=== PATIENT | male | born 1930 | race Caucasian/White ===

== ENCOUNTER 2018-07-13 09:21 | Emergency (ER) | payer OTHER ==
[~2018-07-13] VITALS: Ht 170.2 cm; Wt 72.6 kg
[~2018-07-13 09:21] MED LIST: ACCUPRIL5 MG PO; ADVAIR HFA115 MCG/21 INH; ARICEPT 5 MG TAB5 MG PO; BIOTIN1 M1 PO; DOXYCYCLINE 10100 MG PO; GINKGO BILOBA30 MG PO; GLYCOTROL CAPS1 EACH PO; MICROZIDE12.5 MG PO; NAMENDA 10 MG T10 MG PO; NORVASC2.5 MG PO; OMEGA-31000 M1 PO; PROBIOTIC1 EAC1 PO; VITAMIN D3400 UNIT PO; XARELTO1 EACH PO
[2018-07-13 09:46] LABS: ABSOLUTE NEUTROPHILS 11.9 thou/uL (1.4-8.2); BASOPHILS 0.1 % (0.0-2.0); HEMATOCRIT 51.5 % (42.0-52.0); HEMOGLOBIN 17.6 gm/dL (14.0-18.0); LYMPHOCYTES 2.1 % (24.0-44.0); MCH 33.8 pg (26.0-34.0); MCHC 34.2 g/dL (28.0-37.0); MCV 98.8 fL (80.0-100.0); MONOCYTES 4.9 % (1.0-8.0); PLATELET COUNT 189 thou/uL (150-400); POLYS 92.9 % (36.0-66.0); RBC 5.21 mil/uL (4.50-6.00); RDW 13.5 % (10.5-14.5); WBC 12.8 thou/uL (4.0-11.0)
[2018-07-13 09:57] LABS: CALCIUM 9.1 mg/dL (8.5-10.1); CREATININE 1.3 mg/dL (0.7-1.3); POTASSIUM 4.1 mmol/L (3.5-5.1)
[2018-07-13 09:58] LABS: APTT 29.2 Seconds (24.5-32.8); INR 1.1; PROTIME 11.2 Seconds (9.3-11.4)
[2018-07-13 10:03] LABS: ALBUMIN 3.7 g/dL (3.4-5.0); TOTAL PROTEIN 7.4 g/dL (6.4-8.2)
[2018-07-13 10:14] LABS: URINE BILIRUBIN NEGATIVE (Negative); URINE BLOOD 3+ (Negative); URINE CLARITY CLEAR; URINE COLOR YELLOW; URINE GLUCOSE-RANDOM* NEGATIVE (Negative); URINE KETONES TRACE (Negative); URINE LEUKOCYTES NEGATIVE (Negative); URINE NITRITE NEGATIVE (Negative); URINE PROTEIN (DIPSTICK) TRACE (Negative); URINE SPECIFIC GRAVITY >= 1.030 (1.005-1.035); URINE UROBILINOGEN 0.2 E.U./dl (0.2-1.0)
[2018-07-13 10:23] LABS: AMP/METHAMP Negative (Negative); BARBITURATES Negative (Negative); BENZODIAZEPINES Negative (Negative); COCAINE Negative (Negative); METHADONE Negative (Negative); OPIATES Negative (Negative); PCP Negative (Negative)
[2018-07-13 10:26] LABS: CASTS None Seen /LPF (None Seen); MUCUS 4-6 Moderate strn/LPF (None Seen); SQUAMOUS 0-3 Few /LPF (0-3)
[2018-07-13 10:27] LABS: AMORPHOUS URATES Few /LPF (None Seen); BACTERIA 1-9 Few /HPF (None Seen); URINE RBC 0-2 Rare /HPF (0-2); URINE WBC 0-5 Rare /HPF (0-5)
[2018-07-13] MEDS ORDERED: PAROXETINE HCL10 MG PO (10:52)
[2018-07-13] MEDS ORDERED: VITAMIN D3400 UNIT PO (10:53)
[2018-07-13] MEDS ORDERED: TYLENOL325 MG PO (10:54)
[2018-07-13 12:55] VITALS: BP 142/67
== END 2018-07-13 12:56 | disposition home or self-care (01) ==
LOC: ER 09:21
PROVIDERS: Emergency Medicine
DX: S20.212A Contusion of left front wall of thorax, initial encounter (principal); F03.90 Unspecified dementia, unspecified severity, without behavioral disturbance, psychotic disturbance, mood disturbance, and anxiety; R19.7 Diarrhea, unspecified; I48.91 Unspecified atrial fibrillation; I25.10 Atherosclerotic heart disease of native coronary artery without angina pectoris; I10 Essential (primary) hypertension; Z79.899 Other long term (current) drug therapy; Z95.5 Presence of coronary angioplasty implant and graft; Z88.0 Allergy status to penicillin; W18.39XA Other fall on same level, initial encounter; Y93.89 Activity, other specified; Y92.091 Bathroom in other non-institutional residence as the place of occurrence of the external cause; Y99.8 Other external cause status